=== PATIENT | male | born 1965 | race Caucasian/White ===

== ENCOUNTER 2024-10-29 10:29 | Emergency (ER) | payer MEDICARE ==
[2024-10-29 10:44] VITALS: TEMP 96.7
[2024-10-29] MEDS ORDERED: BABY ASPIRIN 81 MG CHEW ONE (10:51)
[2024-10-29] MEDS: BABY ASPIRIN 81 MG CHEW PO ONE (10:52)
[2024-10-29 10:53] LABS: BASOPHIL % 0.3 % (0.2-1.2); Basophil (Absolute #) 0.03 x10^3/uL (0.01-0.08); Eosinophil (Absolute #) 0.15 x10^3/uL (0.04-0.54); Hematocrit 42.2 % (40.1-51.0); Hemoglobin 14.0 g/dL (13.7-17.5); IMMATURE GRAN # 0.04 x10^3u/L (0.001-0.031); IMMATURE GRAN % 0.4 % (0.001-0.429); Lymphocyte (Absolute #) 1.64 x10^3/uL (1.32-3.57); Mean Corpuscular Hemoglobin 28.7 pg (25.7-32.2); Mean Corpuscular Hgb Concent. 33.2 g/dL (32.3-36.5); Monocyte (Absolute #) 0.81 x10^3/uL (0.30-0.82); NUCLEATED RBC # 0.00 x10^3u/L (0.00-0.012); NUCLEATED RBC % 0.0 % (0.00-0.2); Platelet Count 205 x10^3/uL (163-337); Red Blood Count 4.88 x10^6/uL (4.63-6.08); White Blood Count 9.2 x10^3/uL (4.23-9.07)
[2024-10-29 11:05] LABS: Calcium 8.9 mg/dL (8.4-10.2); Carbon Dioxide 26.0 mmol/L (22-30); Creatinine 1 0.74 mg/dL (0.66-1.25); EST GLOMERULAR FILTRATION RATE 105.7 ML/MIN; Glucose 168.0 mg/dL (74-106); Potassium 4.1 mmol/L (3.5-5.1); SGOT/AST 20.0 U/L (17-59); SGPT/ALT 15.0 U/L (0-50); Total Protein 6.8 g/dL (6.3-8.2)
--- NOTE | 2024-10-29 11:13 | XRAY ---
Indication: Chest pain. Comparison: None Portable chest demonstrates right hemidiaphragm elevation, mild bibasilar subsegmental atelectasis/scarring, and tiny right lung calcified granulomas. Heart not enlarged. Bony thorax intact with mild degenerative changes. Impression: Nonacute chest with chronic features.
--- NOTE | 2024-10-29 11:47 | ERPHSYRPT ---
- History of Present Illness Patient Subjective Stated Complaint: chest pain that began around an hour ago Triage Nursing Assessment: patient states that about an hour ago he picked up his grandson and experienced pain and pressure in his left chest that radiated to his left arm. He was also lightheaded an dizzy. Now he states that his pain is a 7. He denies shortness of breath. He has been seeing a linux admin engineer for a suspected infact and has an ech schduled on the and a cath scheduled for the 19 of November. Currently, he is pink, warm and dry with no shortness of breath. respirations are easy and unlabored. Physician History: Presents with chest pain, onset of symptoms about an hour ago, he was picking up his 9-month-old grandchild when he developed his pain, at the time examination he has pains in his chest is resolved but he has left arm achiness, he states that he is scheduled to undergo cardiac catheterization next week, apparently was seen in clinic and had a EKG which had revealed a previous infarction, The linux admin engineer recommended that he just undergo cardiac catheterization to sort out whether he has coronary blockage, he denies history of recurrent episodes of chest pain,No recent change in medications Timing/Duration: today Activities at Onset: activity Quality: aching Location: shoulder Chest Pain Radiation: arm Severity of Pain-Max: moderate Severity of Pain-Current: mild Associated Symptoms: denies symptoms Prior Chest Pain/Cardiac Workup: no prior chest pain Nitro Today/Relief: no nitro taken today Aspirin Treatment Today: no aspirin today Allergies/Adverse Reactions: Latex, Natural Rubber Allergy (Verified 08/12/24 05:13) Penicillins Allergy (Verified 08/12/24 05:13) potassium Adverse Reaction (Verified 08/12/24 05:13) Diarrhea Home Medications: Albuterol Sulfate [Albuterol Sulfate Hfa] 8.5 gm IH Q6HPRN PRN 08/12/24 [History] Atorvastatin Calcium 20 mg PO HS 08/12/24 [History] Azelastine/Fluticasone [Azelastin-Flutic 137-50Mcg Spr] 23 gm NS BID 08/12/24 [History] Celecoxib 100 mg [celeBREX 100 MG] 100 mg PO BID 08/12/24 [History] Dulaglutide [Trulicity] 3 mg SQ WEEKLY 08/12/24 [History] Duloxetine HCl 30 mg [Cymbalta 30 MG Capsule] 30 mg PO BID 08/12/24 [History] Fluvoxamine Maleate 25 mg PO DAILY 08/12/24 [History] Gabapentin [Neurontin ] 900 mg PO TID 08/12/24 [History] Insulin Aspart [NovoLOG Insulin] 50 unit SQ TIDWMEALS 08/12/24 [History] Insulin Glargine [Lantus Insulin] 40 unit SQ BID 08/12/24 [History] Levothyroxine Sodium 100 Mcg [Synthroid 100 Mcg] 150 mcg PO DAILY 08/12/24 [History] Lisinopril 20 mg [Zestril 20 MG] 20 mg PO BID 08/12/24 [History] Montelukast Sodium 10 mg [Singulair 10 MG] 10 mg PO DAILY 08/12/24 [History] Omeprazole 20 mg PO BID 08/12/24 [History] Chlorthalidone [Thalitone] 15 mg PO DAILY 10/29/24 [History] Hydrocodone/Acetaminophen [Hydrocodone-Acetamin 7.5-325] 7.5 mg PO BID 10/29/24 [History] Hx Tetanus, Diphtheria Vaccination/Date Given: No Hx Influenza Vaccination/Date Given: No Hx Pneumococcal Vaccination/Date Given: No Travel Risk - International Travel Have you traveled outside of the country in past 3 weeks: No - Emerging Infectious Disease Are you exhibiting symptoms associated with any current EIDs: No - Past Medical History Pertinent Past Medical History: Yes Neurological History: Peripheral Neuropathy, Seizures Cardiac History: High Cholesterol, Hypertension Respiratory History: Asthma, Bronchitis, COPD, Pneumonia Endocrine Medical History: Diabetes Type II, Thyroid Cancer Musculoskeletal History: Fractures, Osteoarthritis GI Medical History: GERD, Gallbladder Disease Other Medical History: 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; MULTIPLE CERVICAL & LUMBER FXS; HX OF DEPRESSION & ANXIETY - Past Surgical History Past Surgical History: Yes Gastrointestinal: Cholecystectomy, Hernia Repair Musculoskeletal: Orthopedic Surgery Other Surgical History: thyroidectomy, R knee, neck surgery, sinus surgery, scrotal surgery - Social History Smoking Status: Former smoker Exposure to second hand smoke: No Drug Use: none - Social Determinants of Health Will the patient participate in the screening: Unable to obtain Do you worry about a steady place to live?: No In the past 12 months,have you had to go without utilities?: No Transportation Issues: No Has anyone in your support network made you feel unsafe?: No Have you or anyone in your house had to go w/o enough food: No - Nursing Vital Signs Nursing Vital Signs: Initial Vital Signs Temperature 96.7 F 10/29/24 10:32 Pulse Rate 81 10/29/24 10:32 Respiratory Rate 18 10/29/24 10:32 Blood Pressure 126/91 10/29/24 10:32 O2 Sat by Pulse Oximetry 98 10/29/24 10:32 Pain Scale Pain Intensity 7 - Physical Exam General Appearance: no apparent distress, alert, obese Eye Exam: PERRL/EOMI, eyes nml inspection Ears, Nose, Throat Exam: normal ENT inspection, pharynx normal, moist mucous membranes Neck Exam: normal inspection, non-tender, supple, full range of motion Respiratory Exam: normal breath sounds, chest tenderness Cardiovascular Exam: regular rate/rhythm, normal heart sounds, normal peripheral pulses Gastrointestinal/Abdomen Exam: soft, normal bowel sounds Back Exam: normal inspection, normal range of motion Extremity Exam: normal inspection, normal range of motion Neurologic Exam: alert, oriented x 3, cooperative, 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 nml as tested, normal mood/affect Skin Exam: normal color SpO2 Interpretation: normal SpO2: 96 Ordered Tests: Active Orders 24 hr Category Date Time Status Computer Network Engineer STAT Care 10/29/24 10:44 Active IV Insertion STAT Care 10/29/24 10:43 Active CHEST 1 VIEW (PORTABLE) Stat Exams 10/29/24 10:44 Completed CBC W DIFF Stat Lab 10/29/24 10:45 Completed CMP Stat Lab 10/29/24 10:45 Completed CULTURE,URINE Stat Lab 10/29/24 13:00 Received TROPONIN Q4H Lab 10/29/24 10:45 Completed TROPONIN Q4H Lab 10/29/24 12:54 Completed TROPONIN Q4H Lab 10/29/24 18:45 Ordered UA W/RFX UR CULTURE Stat Lab 10/29/24 13:00 Completed Medication Summary Discontinued Medications Generic Name Dose Route Start Last Admin Trade Name Freq PRN Reason Stop Dose Admin Aspirin 324 mg 10/29/24 10:43 10/29/24 10:52 Aspirin 81 Mg Tab.Chew PO 10/29/24 10:44 324 mg STAT ONE Administration Aspirin Confirm 10/29/24 10:51 Aspirin 81 Mg Tab.Chew Administered 10/29/24 10:52 Dose 324 mg .ROUTE .STK-MED ONE Lab/Rad Data: Laboratory Result Diagrams 10/29/24 10:45 10/29/24 10:45 Laboratory Results 10/29/24 10/29/24 10/29/24 Range/Units 13:00 12:54 10:45 WBC (4.23-9.07) x10^3/uL RBC (4.63-6.08) x10^6/uL Hgb (13.7-17.5) g/dL Hct (40.1-51.0) % MCV (79.0-92.2) fL MCH (25.7-32.2) pg MCHC (32.3-36.5) g/dL RDW (11.6-14.4) % Plt Count (163-337) x10^3/uL MPV (9.4-12.4) fL Gran % (34.0-67.9) % Immature Gran % (Auto) (0.001-0.429) % Nucleat RBC Rel Count (0.00-0.2) % Eos # (Auto) (0.04-0.54) x10^3/uL Immature Gran # (Auto) (0.001-0.031) x10^3u/L Absolute Lymphs (auto) (1.32-3.57) x10^3/uL Absolute Monos (auto) (0.30-0.82) x10^3/uL Absolute Nucleated RBC (0.00-0.012) x10^3u/L Lymphocytes % (21.8-53.1) % Monocytes % (5.3-12.2) % Eosinophils % (0.8-7.0) % Basophils % (0.2-1.2) % Absolute Granulocytes (1.78-5.38) x10^3/uL Basophils # (0.01-0.08) x10^3/uL Sodium (135-145) mmol/L Potassium (3.5-5.1) mmol/L Chloride (98-107) mmol/L Carbon Dioxide (22-30) mmol/L Anion Gap (5-15) MEQ/L BUN (9-20) mg/dL Creatinine (0.66-1.25) mg/dL Estimated GFR ML/MIN Glucose (74-106) mg/dL Calcium (8.4-10.2) mg/dL Total Bilirubin (0.2-1.3) mg/dL AST (17-59) U/L ALT (0-50) U/L Alkaline Phosphatase (38-126) U/L Troponin I < 0.012 < 0.012 (0.000-0.033) ng/mL Serum Total Protein (6.3-8.2) g/dL Albumin (3.5-5.0) g/dL Urine Color Yellow (Yellow) Urine Appearance Cloudy A (Clear) Urine pH 6.5 (4.6-8.0) Ur Specific [place] 1.020 (1.005-1.030) Urine Protein Trace A (Negative) Urine Glucose (UA) Negative (Negative) mg/dL Urine Ketones Trace A (Negative) Urine Blood Negative (Negative) Urine Nitrite Negative (Negative) Urine Bilirubin Negative (Negative) Urine Urobilinogen 1.0 A (0.2) mg/dL Ur Leukocyte Esterase Small A (Negative) U Hyaline Cast (Auto) NONE SEEN (0-2) /LPF Urine Microscopic RBC 0-2 (0-5) /HPF Urine Microscopic WBC 6-10 A (0-5) /HPF Ur Epithelial Cells None Seen (None Seen) /HPF Urine Bacteria Many A (None Seen) /HPF Urine Culture Reflexed YES (NO) 10/29/24 10/29/24 Range/Units 10:45 10:45 WBC 9.2 H (4.23-9.07) x10^3/uL RBC 4.88 (4.63-6.08) x10^6/uL Hgb 14.0 (13.7-17.5) g/dL Hct 42.2 (40.1-51.0) % MCV 86.5 (79.0-92.2) fL MCH 28.7 (25.7-32.2) pg MCHC 33.2 (32.3-36.5) g/dL RDW 12.6 (11.6-14.4) % Plt Count 205 (163-337) x10^3/uL MPV 9.2 L (9.4-12.4) fL Gran % 71.0 H (34.0-67.9) % Immature Gran % (Auto) 0.4 (0.001-0.429) % Nucleat RBC Rel Count 0.0 (0.00-0.2) % Eos # (Auto) 0.15 (0.04-0.54) x10^3/uL Immature Gran # (Auto) 0.04 H (0.001-0.031) x10^3u/L Absolute Lymphs (auto) 1.64 (1.32-3.57) x10^3/uL Absolute Monos (auto) 0.81 (0.30-0.82) x10^3/uL Absolute Nucleated RBC 0.00 (0.00-0.012) x10^3u/L Lymphocytes % 17.9 L (21.8-53.1) % Monocytes % 8.8 (5.3-12.2) % Eosinophils % 1.6 (0.8-7.0) % Basophils % 0.3 (0.2-1.2) % Absolute Granulocytes 6.50 H (1.78-5.38) x10^3/uL Basophils # 0.03 (0.01-0.08) x10^3/uL Sodium 138 (135-145) mmol/L Potassium 4.1 (3.5-5.1) mmol/L Chloride 105 (98-107) mmol/L Carbon Dioxide 26 (22-30) mmol/L Anion Gap 11.1 (5-15) MEQ/L BUN 13 (9-20) mg/dL Creatinine 0.74 (0.66-1.25) mg/dL Estimated GFR 105.7 ML/MIN Glucose 168 H (74-106) mg/dL Calcium 8.9 (8.4-10.2) mg/dL Total Bilirubin 0.50 (0.2-1.3) mg/dL AST 20 (17-59) U/L ALT 15 (0-50) U/L Alkaline Phosphatase 173 H (38-126) U/L Troponin I (0.000-0.033) ng/mL Serum Total Protein 6.8 (6.3-8.2) g/dL Albumin 4.0 (3.5-5.0) g/dL Urine Color (Yellow) Urine Appearance (Clear) Urine pH (4.6-8.0) Ur Specific [place] (1.005-1.030) Urine Protein (Negative) Urine Glucose (UA) (Negative) mg/dL Urine Ketones (Negative) Urine Blood (Negative) Urine Nitrite (Negative) Urine Bilirubin (Negative) Urine Urobilinogen (0.2) mg/dL Ur Leukocyte Esterase (Negative) U Hyaline Cast (Auto) (0-2) /LPF Urine Microscopic RBC (0-5) /HPF Urine Microscopic WBC (0-5) /HPF Ur Epithelial Cells (None Seen) /HPF Urine Bacteria (None Seen) /HPF Urine Culture Reflexed (NO) - Progress Progress: improved Progress Note: 10/29/24 14:40 Discussed labs and x-ray and EKG, recommend patient follow-up to cardiology as scheduled - Departure Departure Disposition: Home Clinical Impression: Atypical chest pain Condition: Stable Critical Care Time: No Referrals: KP BROWN DO [Primary Care Provider, [facility]] - Follow up/PCP as directed Instructions: Atypical Chest Pain Additional Instructions: Follow-up to cardiology as scheduled
[2024-10-29 13:17] VITALS: BP 131/74; PULSE 76; RESP 15; O2SAT 96
[2024-10-29 13:21] LABS: Glucose, Urine Negative (Negative); Protein,Urine Dip Trace (Negative); RBC 0-2 /HPF (0-5)
== END 2024-10-29 14:49 | disposition home or self-care (01) ==
LOC: ED 10:29
DX: R07.89 Other chest pain (principal); I10 Essential (primary) hypertension; E11.42 Type 2 diabetes mellitus with diabetic polyneuropathy; Z79.85 Long-term (current) use of injectable non-insulin antidiabetic drugs; Z79.4 Long term (current) use of insulin; Z79.899 Other long term (current) drug therapy

== ENCOUNTER 2024-11-01 09:07 | Emergency (ER) | payer MEDICARE ==
[2024-11-01 09:20] VITALS: RESP 18; TEMP 96.8
--- NOTE | 2024-11-01 09:35 | ERPHSYRPT ---
- History of Present Illness Time Seen by Provider: 11/01/24 09:35 Source: patient Exam Limitations: no limitations Patient Subjective Stated Complaint: pt here for possible infection to right great toe. pt states he has had a diabetic foot ulcer there in the past. noticed pain when walking last night, no fever Triage Nursing Assessment: pt alert, walked in, resp easy, skin w/d/p. pt has blsiter to bottom posterior toe, no drainage noted Physician History: Patient presents to the emergency room with possible wound on his right great toe. He has a history of chronic callus on this toe that he is treated by podiatry for. He reports increase in redness and swelling of that toe over the last week. No known injury. He has diabetic neuropathy so he is unable to feel injury to the toe. He denies fevers. Allergies/Adverse Reactions: Latex, Natural Rubber Allergy (Verified 11/01/24 09:20) Penicillins Allergy (Verified 11/01/24 09:20) potassium Adverse Reaction (Verified 11/01/24 09:20) Diarrhea Home Medications: Albuterol Sulfate [Albuterol Sulfate Hfa] 8.5 gm IH Q6HPRN PRN 08/12/24 [History] Atorvastatin Calcium 20 mg PO HS 08/12/24 [History] Azelastine/Fluticasone [Azelastin-Flutic 137-50Mcg Spr] 23 gm NS BID 08/12/24 [History] Celecoxib 100 mg [celeBREX 100 MG] 100 mg PO BID 08/12/24 [History] Dulaglutide [Trulicity] 3 mg SQ WEEKLY 08/12/24 [History] Duloxetine HCl 30 mg [Cymbalta 30 MG Capsule] 30 mg PO BID 08/12/24 [History] Fluvoxamine Maleate 25 mg PO DAILY 08/12/24 [History] Gabapentin [Neurontin ] 900 mg PO TID 08/12/24 [History] Insulin Aspart [NovoLOG Insulin] 50 unit SQ TIDWMEALS 08/12/24 [History] Insulin Glargine [Lantus Insulin] 40 unit SQ BID 08/12/24 [History] Levothyroxine Sodium 100 Mcg [Synthroid 100 Mcg] 150 mcg PO DAILY 08/12/24 [History] Lisinopril 20 mg [Zestril 20 MG] 20 mg PO BID 08/12/24 [History] Montelukast Sodium 10 mg [Singulair 10 MG] 10 mg PO DAILY 08/12/24 [History] Omeprazole 20 mg PO BID 08/12/24 [History] Chlorthalidone [Thalitone] 15 mg PO DAILY 10/29/24 [History] Hydrocodone/Acetaminophen [Hydrocodone-Acetamin 7.5-325] 7.5 mg PO BID 10/29/24 [History] Hx Tetanus, Diphtheria Vaccination/Date Given: No Hx Influenza Vaccination/Date Given: No Hx Pneumococcal Vaccination/Date Given: No Immunizations Up to Date: Yes Travel Risk - International Travel Have you traveled outside of the country in past 3 weeks: No - Emerging Infectious Disease Are you exhibiting symptoms associated with any current EIDs: No - Review of Systems All Other Systems: Reviewed and Negative - Past Medical History Pertinent Past Medical History: Yes Neurological History: Peripheral Neuropathy, Seizures Cardiac History: High Cholesterol, Hypertension Respiratory History: Asthma, Bronchitis, COPD, Pneumonia Endocrine Medical History: Diabetes Type II, Thyroid Cancer Musculoskeletal History: Fractures, Osteoarthritis GI Medical History: GERD, Gallbladder Disease Other Medical History: 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; MULTIPLE CERVICAL & LUMBER FXS; HX OF DEPRESSION & ANXIETY - Past Surgical History Past Surgical History: Yes Gastrointestinal: Cholecystectomy, Hernia Repair Musculoskeletal: Orthopedic Surgery Other Surgical History: thyroidectomy, R knee, neck surgery, sinus surgery, scrotal surgery - Social History Smoking Status: Former smoker Exposure to second hand smoke: No Drug Use: none - Social Determinants of Health Will the patient participate in the screening: Unable to obtain Do you worry about a steady place to live?: No In the past 12 months,have you had to go without utilities?: No Transportation Issues: No Has anyone in your support network made you feel unsafe?: No Have you or anyone in your house had to go w/o enough food: No - Nursing Vital Signs Nursing Vital Signs: Initial Vital Signs Temperature 96.8 F 11/01/24 09:19 Pulse Rate 97 H 11/01/24 09:19 Respiratory Rate 18 11/01/24 09:19 Blood Pressure 182/86 11/01/24 09:19 O2 Sat by Pulse Oximetry 99 11/01/24 09:19 Pain Scale Pain Intensity 4 - Physical Exam Cardiovascular Exam: regular rate/rhythm Neurologic Exam: alert, oriented x 3, cooperative SpO2 Interpretation: normal SpO2: 99 O2 Delivery: Room Air Comments: 11/01/24 10:10 Right great toe Positive swelling Positive erythema that extends to the base of the toe. Large callus on the medial aspect of the toe. Blood blister noted on the plantar aspect. No active drainage Full range of motion No tenderness to palpation on exam - Course Nursing assessment & vital signs reviewed: Yes Ordered Tests: Medication Summary Discontinued Medications Generic Name Dose Route Start Last Admin Trade Name Rowan PRN Reason Stop Dose Admin Cephalexin HCl 500 mg 11/01/24 10:05 11/01/24 10:08 Cephalexin Mh500 Mg Capsule PO 11/01/24 10:06 500 mg STAT ONE Administration Cephalexin HCl Confirm 11/01/24 10:07 Cephalexin Mh500 Mg Capsule Administered 11/01/24 10:08 Dose 500 mg .ROUTE .STK-MED ONE - Progress Progress: unchanged Progress Note: 11/01/24 10:12 Patient presents with signs and symptoms consistent with cellulitis of right hallux. He has a large blood blister on the plantar aspect of the hallux as well. Patient has long history of chronic callus on the medial aspect of the hallux. No signs on physical exam concerning for systemic infection. Discussed risks and benefits of treatment options. I will start patient on oral Keflex. Patient would benefit from offloading pressure to the hallux so a dressing was placed around the toe and he was placed in a postop shoe. 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 No need for admission at this time. If redness extends or symptoms worsen please return to the emergency room for admission. Counseled pt/family regarding: diagnosis, need for follow-up Medical Desision Making - Diagnostic Testing Diagnostic test were ordered, analyzed, and reviewed by me: No - Risk of complications The pt has a mod risk of morbidity or mortality based on: Need for prescription drug management - Departure Departure Disposition: Home Clinical Impression: Cellulitis of great toe, right Condition: Stable Critical Care Time: No Referrals: LINCOLN LAMB DPM [ACTIVE STAFF, PODIATRY] - 11/02/24 8:00 am Instructions: Cellulitis (skin infection) in adults - ED discharge instructions Prescriptions: Cephalexin Mh 500 mg [Keflex 500 mg] 500 mg PO TID 7 Days #21 cap
[2024-11-01] MEDS ORDERED: KEFLEX 500 MG ONE (10:07)
[2024-11-01] MEDS: KEFLEX 500 MG PO ONE (10:08)
[2024-11-01 10:32] VITALS: BP 144/75; PULSE 84; O2SAT 97
== END 2024-11-01 10:33 | disposition home or self-care (01) ==
LOC: ED 09:07
DX: L03.031 Cellulitis of right toe (principal); I10 Essential (primary) hypertension; E11.42 Type 2 diabetes mellitus with diabetic polyneuropathy; Z79.891 Long term (current) use of opiate analgesic; Z79.4 Long term (current) use of insulin; Z79.85 Long-term (current) use of injectable non-insulin antidiabetic drugs; Z79.899 Other long term (current) drug therapy

== ENCOUNTER 2024-11-28 14:07 | Emergency (ER) | payer MEDICARE ==
--- NOTE | 2024-11-28 14:09 | ERPHSYRPT ---
- History of Present Illness Time Seen by Provider: 11/28/24 14:09 Source: patient, family Exam Limitations: no limitations Physician History: This is a morbidly obese 59-year-old white male patient who arrives by private vehicle and is a patient of Dr. Brown with a history of chronic right hip pain. He states he is fallen several times in the past. The most recent was in April 2024. There is been no recent injury to his right hip. He does see a pain specialist and has an appointment to see Dr. Rasmussen on 12/16/2024 for an injection of the right hip. He also has appoint to see orthopedic surgery, Dr. Tamir Isbell on 12/08/2024. In the last week his pain has worsened and he is having trouble moving around. He states he has never had any diagnostic studies of this right hip. He is on [place] 7.5/325 and gabapentin to help control pain issues. He took both of these medications at 10 AM. Those medications do not appear to be helping him much. Patient has multiple medical problems including morbid obesity, gastroesophageal reflux disease, hypertension, insulin-dependent diabetes, hyperlipidemia, peripheral neuropathy, asthma/COPD, hypothyroidism and seizure disorder. He denies chest pain and he denies shortness of breath. Timing/Duration: intermittent, worse (Worse in the last week) Context: other (No acute fall or trauma to the right hip) Quality: sharpness, stabbing Hip Pain Location: hip (R) Severity of Pain-Max: moderate Severity of Pain-Current: moderate Modifying Factors: Improves With: movement Symptoms prior to fall: none Associated Symptoms: trouble walking (Secondary to pain) Allergies/Adverse Reactions: Latex, Natural Rubber Allergy (Verified 11/28/24 14:22) Penicillins Allergy (Verified 11/28/24 14:22) potassium Adverse Reaction (Verified 11/28/24 14:22) Diarrhea Home Medications: Albuterol Sulfate [Albuterol Sulfate Hfa] 8.5 gm IH Q6HPRN PRN 08/12/24 [History] Atorvastatin Calcium 20 mg PO HS 08/12/24 [History] Azelastine/Fluticasone [Azelastin-Flutic 137-50Mcg Spr] 23 gm NS BID 08/12/24 [History] Celecoxib 100 mg [celeBREX 100 MG] 100 mg PO BID 08/12/24 [History] Dulaglutide [Trulicity] 4.5 mg SQ WEEKLY 08/12/24 [History] Duloxetine HCl 30 mg [Cymbalta 30 MG Capsule] 30 mg PO BID 08/12/24 [History] Fluvoxamine Maleate 25 mg PO DAILY 08/12/24 [History] Gabapentin [Neurontin ] 900 mg PO TID 08/12/24 [History] Insulin Aspart [NovoLOG Insulin] 40 unit SQ TIDWMEALS 08/12/24 [History] Insulin Glargine [Lantus Insulin] 40 unit SQ BID 08/12/24 [History] Levothyroxine Sodium 100 Mcg [Synthroid 100 Mcg] 150 mcg PO DAILY 08/12/24 [History] Lisinopril 20 mg [Zestril 20 MG] 20 mg PO BID 08/12/24 [History] Montelukast Sodium 10 mg [Singulair 10 MG] 10 mg PO DAILY 08/12/24 [History] Omeprazole 20 mg PO BID 08/12/24 [History] Chlorthalidone [Thalitone] 15 mg PO DAILY 10/29/24 [History] Hydrocodone/Acetaminophen [Hydrocodone-Acetamin 7.5-325] 7.5 mg PO QID 10/29/24 [History] Hx Tetanus, Diphtheria Vaccination/Date Given: No Hx Influenza Vaccination/Date Given: No Hx Pneumococcal Vaccination/Date Given: No Travel Risk - International Travel Have you traveled outside of the country in past 3 weeks: No - Emerging Infectious Disease Are you exhibiting symptoms associated with any current EIDs: No - Review of Systems Constitutional: No Symptoms Eyes: No Symptoms Ears, Nose, & Throat: No Symptoms Respiratory: No Symptoms Cardiac: No Symptoms Abdominal/Gastrointestinal: No Symptoms Genitourinary Symptoms: No Symptoms Musculoskeletal: Joint Pain (Right hip pain), No Fall, No Injury Skin: No Symptoms Neurological: No Symptoms Psychological: No Symptoms Endocrine: No Symptoms Hematologic/Lymphatic: No Symptoms Immunological/Allergic: No Symptoms All Other Systems: Reviewed and Negative - Past Medical History Pertinent Past Medical History: Yes Neurological History: Peripheral Neuropathy, Seizures Cardiac History: High Cholesterol, Hypertension Respiratory History: Asthma, Bronchitis, COPD, Pneumonia Endocrine Medical History: Diabetes Type II, Thyroid Cancer Musculoskeletal History: Fractures, Osteoarthritis GI Medical History: GERD, Gallbladder Disease Other Medical History: 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; MULTIPLE CERVICAL & LUMBER FXS; HX OF DEPRESSION & ANXIETY - Past Surgical History Past Surgical History: Yes Gastrointestinal: Cholecystectomy, Hernia Repair Musculoskeletal: Orthopedic Surgery Other Surgical History: thyroidectomy, R knee, neck surgery, sinus surgery, scrotal surgery - Social History Smoking Status: Former smoker - Social Determinants of Health Will the patient participate in the screening: Unable to obtain - Nursing Vital Signs Nursing Vital Signs: Initial Vital Signs Temperature 95.9 F 11/28/24 14:14 Pulse Rate 86 11/28/24 14:14 Blood Pressure 135/100 11/28/24 14:14 O2 Sat by Pulse Oximetry 98 11/28/24 14:14 Pain Scale Pain Intensity 10 - Physical Exam General Appearance: no apparent distress, alert, anxiety, obese Eye Exam: PERRL/EOMI, eyes nml inspection Ears, Nose, Throat Exam: normal ENT inspection, moist mucous membranes Neck Exam: normal inspection, non-tender, supple, full range of motion Respiratory Exam: airway intact, No chest tenderness, No respiratory distress Gastrointestinal Exam: No tenderness Rectal Exam: not done Back Exam: normal inspection, normal range of motion, No CVA tenderness, No vertebral tenderness Extremity Exam: normal inspection, normal range of motion, pelvis stable, tenderness (Right hip pain with ambulation) Neurologic Exam: alert, oriented x 3, cooperative, second baller II-XII nml as tested, sensation nml Skin Exam: normal color, warm, dry Lymphatic Exam: No adenopathy SpO2 Interpretation: normal O2 Delivery: Room Air - Course Nursing assessment & vital signs reviewed: Yes Ordered Tests: Active Orders 24 hr Category Date Time Status LOWER EXTREMITY WO CONTRAST [CT] Stat Exams 11/28/24 14:31 Completed Medication Summary Discontinued Medications Generic Name Dose Route Start Last Admin Trade Name Freq PRN Reason Stop Dose Admin Methylprednisolone Sodium 0 mg 11/28/24 15:30 11/28/24 15:41 Succinate 125 mg/ Sterile IM 11/28/24 15:31 125 mg Water 2 ml STAT ONE Administration Hydromorphone HCl 1 mg 11/28/24 15:31 11/28/24 15:41 Hydromorphone 1 Mg/1ml Inj IM 11/28/24 15:32 1 mg STAT ONE Administration Hydromorphone HCl Confirm 11/28/24 15:39 Hydromorphone 1 Mg/1ml Inj Administered 11/28/24 15:40 Dose 1 mg .ROUTE .STK-MED ONE Methylprednisolone Sodium Succinate Confirm 11/28/24 15:39 Methylprednis Sod Succ 125 Mg/2 Ml Vial Administered 11/28/24 15:40 Dose 125 mg .ROUTE .STK-MED ONE Ondansetron HCl 4 mg 11/28/24 15:30 11/28/24 15:40 Zofran 4 Mg/Udtablet Orally Disintegrating PO 11/28/24 15:31 4 mg STAT ONE Administration Ondansetron HCl Confirm 11/28/24 15:38 Zofran 4 Mg/Udtablet Orally Disintegrating Administered 11/28/24 15:39 Dose 4 mg .ROUTE .STK-MED ONE Orphenadrine Citrate 60 mg 11/28/24 15:30 11/28/24 15:42 Orphenadrine Citrate 60 Mg/2 Ml Vial IM 11/28/24 15:31 60 mg STAT ONE Administration Orphenadrine Citrate Confirm 11/28/24 15:38 Orphenadrine Citrate 60 Mg/2 Ml Vial Administered 11/28/24 15:39 Dose 60 mg .ROUTE .STK-MED ONE Sterile Water Confirm 11/28/24 15:38 Water For Injection,Sterile 10 Ml Vial Administered 11/28/24 15:39 Dose 10 ml IJ .STK-MED ONE - Progress Progress: improved, pain not gone completely, re-examined Progress Note: 11/28/24 14:57 My medical decision making of the assignment of low to moderate complexity of this patient's medical issue today is based on review of the patient's past medical history, review the patient's medication list, review the patient drug allergy list, history present illness and physical findings on examination. The workup in this patient includes CT scan of the patient's right hip. We will also provide the patient with a combination of medications to help relieve some of his right hip pain. The patient and I did discuss outpatient pain control that will be primarily managed by his pain specialist and secondarily managed by his primary care provider and orthopedic surgeon. I will attempt to provide him additional medications to help relieve some of his right hip pain in conjunction with the current outpatient medication he already is taking. Differential diagnosis includes but is not limited to right hip fracture, right hip dislocation, acute exacerbation of chronic right hip pain, severe arthritis right hip 11/28/24 16:[address] scan of the right hip was interpreted by the radiologist and I reviewed the impression the impression states no soft tissue abnormality surrounding right hip. Right hip with arthritic changes. There is preserved rounded cortical contours and no depression present. There is mild right hip effusion. MRI recommended 11/28/24 16:26 I think septic arthritis and avascular necrosis is less likely in this patient. He will follow-up as an outpatient at his scheduled orthopedic visit or earlier with an outpatient walk-in clinic visit on 11/30/2024. Counseled pt/family regarding: diagnosis, rad results Medical Desision Making - Diagnostic Testing Diagnostic test were ordered, analyzed, and reviewed by me: Yes Radiological Interpretation: Reviewed by me, Teleradiologist Report - Risk of complications Low Risk: Low risk of morbidity from additional dx testing or treatment The pt has a mod risk of morbidity or mortality based on: Need for prescription drug management - Departure Departure Disposition: Home Clinical Impression: Arthritis of right hip, Right hip joint effusion Condition: Stable Critical Care Time: No Referrals: KP BROWN DO [Primary Care Provider, [facility]] - Follow up/PCP as directed Additional Instructions: Alternate ice and warm compresses to the right hip (not directly on the skin) 3 times a day for the next 48 hours. Take your current medications as prescribed. Take the steroids as prescribed and monitor your blood sugar closely while taking the steroids. Follow-up at the [facility] orthopedic clinic on at 8 AM December 03, 2024. This is a walk-in orthopedic clinic visit. You do not need to schedule appointment on that date and time. Prescriptions: Prednisone 10 mg [Deltasone 10 mg] 10 mg PO TID #12 tablet
[2024-11-28 14:21] VITALS: TEMP 95.9
[2024-11-28 15:16] VITALS: RESP 18
[2024-11-28] MEDS ORDERED: Sterile H2O 10 ml IJ ONE (15:38)
[2024-11-28] MEDS ORDERED: Norflex 60 MG/2 ML ONE (15:38)
[2024-11-28] MEDS ORDERED: ZOFRAN ODT 4 MG ONE (15:38)
[2024-11-28] MEDS ORDERED: Hydromorphone 1 mg/ml Injection ONE (15:39)
[2024-11-28] MEDS: ZOFRAN ODT 4 MG PO ONE (15:40)
[2024-11-28] MEDS: solu-MEDROL 125 MG, Sterile H2O 10 ml 2 ML IM ONE (15:41)
[2024-11-28] MEDS: Hydromorphone 1 mg/ml Injection IM ONE (15:41)
[2024-11-28] MEDS: Norflex 60 MG/2 ML IM ONE (15:42)
--- NOTE | 2024-11-28 16:18 | XRAY ---
CLINICAL HISTORY: Right hip pain COMPARISON: None. TECHNIQUE: Multiple contiguous nonenhanced CT scans of the right hip joint in the axial plane with multiplanar reconstructions were performed. One of the following dose reduction techniques was utilized for this exam: automated exposure control, adjustment of the mA and/or kV according to patient size, and the use of iterative reconstruction. FINDINGS: Bones and Joints: Evidence of arthritic changes along the scanned right hip joint is denoted by reduced joint space, cortical irregularities and sclerosis, osteophytic hypertrophy, and subchondral cystic changes, which are more evident at the anterosuperior joint space of the articular surfaces. A focal area of accentuated subchondral cysts is identified at the anterior aspect of the right femoral head with no associated contour irregularities or cortical depression, best appreciated at axial image 54/129. Normal alignment of the femoral heads, necks, and acetabula is noted. No fractures are identified. No evidence of intra-articular loose bodies is present. Mild joint effusion is noted. Similar arthritic changes are identified at the scanned left hip joint. Bilateral arthritic changes are present along the scanned sacroiliac joints. Soft Tissues: Normal appearance of the soft tissues surrounding the hips is observed. No abnormal masses, swelling, or fluid collections are seen. The prostate is mildly enlarged, showing radiodense prostatic concretions. A normal CT appearance of both seminal vesicles is noted. The urinary bladder shows mild, uniform, increased wall thickness. No radiodense stones or sizable masses are identified. The sigmoid colon is elongated and shows a right-sided orientation, with a clear fat plane along its mesentery. A normal CT appearance of the rectum is observed. Bilateral ischiorectal fossae are clear. The presacral fat plane is clear. Enlarged external iliac and inguinal lymph nodes are noted, showing an oblong shape and preserved fatty hilum, suggestive of a reactionary nature. IMPRESSION: 1. Right hip arthritic changes with accentuated subchondral cyst formation at the anterior femoral head, with preserved rounded cortical contours and no depression. MRI may be advised to rule out early avascular necrosis according to clinical recommendations. 2. Mild right hip joint effusion. 3. Left hip arthritic changes. 4. Bilateral degenerative sacroiliitis. 5. Prostatomegaly with prostatic concretions. 6. Mild cystitis. 7. Sigmoid dolichocolon. Electronically Signed by: Jesus Nuñez MD. (11/28/2024 16:16:27 EDT)
[2024-11-28 16:23] VITALS: PULSE 76
[2024-11-28 16:37] VITALS: BP 141/89; O2SAT 96
== END 2024-11-28 16:40 | disposition home or self-care (01) ==
LOC: ED 14:07
DX: M16.11 Unilateral primary osteoarthritis, right hip (principal); M25.451 Effusion, right hip; I10 Essential (primary) hypertension; E11.42 Type 2 diabetes mellitus with diabetic polyneuropathy; Z79.85 Long-term (current) use of injectable non-insulin antidiabetic drugs; Z79.4 Long term (current) use of insulin; Z79.899 Other long term (current) drug therapy

== ENCOUNTER 2024-12-16 15:34 | Day surgery (SDC) | payer MEDICARE ==
[2024-12-16] MEDS ORDERED: LIDOCAINE HCL 1% 50 MG/5 ML VL IJ ONE (15:35)
[2024-12-16] MEDS ORDERED: methylPREDNISolone acetate IM ONE (15:35)
[2024-12-16] MEDS ORDERED: BUPIVACAINE 0.5% VIAL IJ ONE (15:35)
--- NOTE | 2024-12-16 20:05 | XRAY ---
Indication: Right hip injection. Intraoperative fluoroscopy provided for 37 seconds. 2 digital spot image submitted for interpretation demonstrates needle tip projecting lateral to right femur neck. Small amount of contrast injected for needle tip placement. Correlate with intraoperative findings/report.
--- NOTE | 2024-12-17 09:18 | XRAY ---
37 seconds of fluoroscopy was used in surgery for a right intra-articular hip injection.
== END 2024-12-16 18:55 | disposition home or self-care (01) ==
LOC: SDC-PAIN 15:34
PROVIDERS: ATTEND Psychiatry & Neurology Pain Medicine
DX: M16.11 Unilateral primary osteoarthritis, right hip (principal); E11.9 Type 2 diabetes mellitus without complications